=== PATIENT | male | born 1985 | race Caucasian/White ===

== ENCOUNTER 2016-12-20 11:57 | Emergency (ER) | payer MEDICAID | END 2016-12-20 15:30 | disposition home or self-care (01) | LOC: D.ER 11:57 | DX: J01.90 Acute sinusitis, unspecified (principal); J20.9 Acute bronchitis, unspecified; F17.200 Nicotine dependence, unspecified, uncomplicated; F31.9 Bipolar disorder, unspecified; F20.9 Schizophrenia, unspecified ==

== ENCOUNTER 2017-04-07 08:46 | Emergency (ER) | payer MEDICAID | END 2017-04-07 09:49 | disposition home or self-care (01) | LOC: D.ER 08:46 | DX: J20.9 Acute bronchitis, unspecified (principal); F31.89 Other bipolar disorder; F17.200 Nicotine dependence, unspecified, uncomplicated ==

== ENCOUNTER 2017-06-15 10:45 | Emergency (ER) | payer MEDICAID | END 2017-06-15 12:14 | disposition home or self-care (01) | LOC: D.ER 10:45 | DX: K08.89 Other specified disorders of teeth and supporting structures (principal); S83.92XA Sprain of unspecified site of left knee, initial encounter; X58.XXXA Exposure to other specified factors, initial encounter; Y93.89 Activity, other specified; Y92.89 Other specified places as the place of occurrence of the external cause ==

== ENCOUNTER 2017-07-01 16:02 | Emergency (ER) | payer MEDICAID | END 2017-07-01 18:32 | disposition home or self-care (01) | LOC: D.ER 16:02 | DX: S80.212A Abrasion, left knee, initial encounter (principal); S80.211A Abrasion, right knee, initial encounter; W19.XXXA Unspecified fall, initial encounter; Y93.89 Activity, other specified; Y92.018 Other place in single-family (private) house as the place of occurrence of the external cause; S39.012A Strain of muscle, fascia and tendon of lower back, initial encounter; Z86.59 Personal history of other mental and behavioral disorders; F17.200 Nicotine dependence, unspecified, uncomplicated ==

== ENCOUNTER 2017-07-31 09:32 | Emergency (ER) | payer MEDICAID | END 2017-07-31 11:15 | disposition home or self-care (01) | LOC: D.ER 09:32 | DX: S39.012A Strain of muscle, fascia and tendon of lower back, initial encounter (principal); X50.0XXA Overexertion from strenuous movement or load, initial encounter; Y93.89 Activity, other specified; Y92.89 Other specified places as the place of occurrence of the external cause; K59.00 Constipation, unspecified ==

== ENCOUNTER 2017-10-19 10:53 | Emergency (ER) | payer MEDICAID | END 2017-10-19 12:00 | disposition home or self-care (01) | LOC: D.ER 10:53 | DX: K02.9 Dental caries, unspecified (principal); K08.89 Other specified disorders of teeth and supporting structures ==

== ENCOUNTER 2017-10-26 15:26 | Emergency (ER) | payer MEDICAID | END 2017-10-26 16:36 | disposition home or self-care (01) | LOC: D.ER 15:26 | DX: K02.9 Dental caries, unspecified (principal); K08.89 Other specified disorders of teeth and supporting structures; F17.200 Nicotine dependence, unspecified, uncomplicated ==

== ENCOUNTER 2017-12-04 13:37 | Emergency (ER) | payer MEDICAID | END 2017-12-04 16:15 | disposition home or self-care (01) | LOC: D.ER 13:37 | DX: K08.89 Other specified disorders of teeth and supporting structures (principal); K02.9 Dental caries, unspecified ==

== ENCOUNTER 2017-12-25 11:48 | Emergency (ER) | payer MEDICAID | END 2017-12-25 14:38 | disposition home or self-care (01) | LOC: D.ER 11:48 | DX: M54.5 Low back pain (principal); S39.012A Strain of muscle, fascia and tendon of lower back, initial encounter; X50.0XXA Overexertion from strenuous movement or load, initial encounter; Y93.89 Activity, other specified; Y92.019 Unspecified place in single-family (private) house as the place of occurrence of the external cause; F17.200 Nicotine dependence, unspecified, uncomplicated ==

== ENCOUNTER 2018-02-20 16:30 | Emergency (ER) | payer MEDICAID | END 2018-02-20 18:39 | disposition home or self-care (01) | LOC: D.ER 16:30 | DX: K02.9 Dental caries, unspecified (principal); K08.89 Other specified disorders of teeth and supporting structures; S02.5XXA Fracture of tooth (traumatic), initial encounter for closed fracture; X58.XXXA Exposure to other specified factors, initial encounter; Y93.89 Activity, other specified; Y92.89 Other specified places as the place of occurrence of the external cause ==

== ENCOUNTER 2018-03-16 22:23 | Emergency (ER) | payer MEDICAID | END 2018-03-17 00:50 | disposition left against medical advice (07) | LOC: D.ER 22:23 | DX: K08.89 Other specified disorders of teeth and supporting structures (principal) ==

== ENCOUNTER 2018-04-19 07:54 | Emergency (ER) | payer MEDICAID ==
[~2018-04-19] VITALS: Ht 180.3 cm; Wt 145.5 kg
[2018-04-19 07:59] VITALS: BP 129/83; Ht 180.3 cm; Wt 145.5 kg
[2018-04-19] MEDS ORDERED: NAPROSYN500 MG PO (08:19)
[2018-04-19] MEDS ORDERED: AMOXICILLIN500 M1 PO (08:19)
== END 2018-04-19 08:23 | disposition home or self-care (01) ==
LOC: D.ER 07:54
DX: K08.89 Other specified disorders of teeth and supporting structures (principal); F17.200 Nicotine dependence, unspecified, uncomplicated

== ENCOUNTER 2018-08-27 16:56 | Emergency (ER) | payer MEDICAID ==
[~2018-08-27] VITALS: Ht 180.3 cm; Wt 136.4 kg
[~2018-08-27 16:56] MED LIST: AMOXICILLIN500 M1 PO; NAPROSYN500 MG PO
[2018-08-27 17:04] VITALS: BP 150/87; Ht 180.3 cm; Wt 136.4 kg
== END 2018-08-27 17:24 | disposition home or self-care (01) ==
LOC: D.ER 16:56
DX: F43.21 Adjustment disorder with depressed mood (principal); F17.200 Nicotine dependence, unspecified, uncomplicated

== ENCOUNTER 2018-09-03 16:38 | Emergency (ER) | payer MEDICAID ==
[~2018-09-03] VITALS: Ht 180.3 cm; Wt 140.9 kg
[2018-09-03 16:42] VITALS: Ht 180.3 cm; Wt 140.9 kg
[2018-09-03 18:23] VITALS: BP 123/76
== END 2018-09-03 17:30 | disposition left against medical advice (07) ==
LOC: D.ER 16:38
DX: I87.8 Other specified disorders of veins (principal)